=== PATIENT | female | born 1990 | race Caucasian/White ===

== ENCOUNTER 2017-10-25 10:24 | Emergency (ER) | payer OTHER ==
[2017-10-25 11:21] VITALS: BP 102/68
--- NOTE | 2017-10-25 11:52 | UC ---
Cardiac HPI - HPI Summary HPI Summary: Starting about 8 days ago, she had uri and cough begin. During this time she has had left posterior lateral rib pain. This pain is not worsened by coughing or breathing. There is no fever, hemoptysis, sob, air hunger, calf pain, calf swelling. She does not take OCP only depo shot and does not smoke. Not breast feeding. 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 No prior hx of heart disease, lung disease, blood clot. - History of Current Complaint Chief Complaint: UCBackPain Stated Complaint: UPPER BACK PAIN Time Seen by Provider: 10/25/17 11:37 Hx Obtained From: Patient Hx Last Menstrual Period: 10/2016 Onset/Duration: Gradual Onset, Lasting Days Timing: Constant Initial Severity: Moderate Current Severity: Moderate Pain Intensity: 7 Chest Pain Location: Discrete at:, Left Lateral Aggravating Factor(s): Other - lifting. Alleviating Factor(s): Position Associated Signs & Symptoms: Positive: Chest Pain. Negative: Recent Stress, Headaches, Numbness, Tingling, SOB, Swelling, Syncope, Fever, Nausea/Vomiting, Palpitations, Cough, Hemoptysis, Back Pain - Allergy/Home Medications Allergies/Adverse Reactions: Allergies Allergy/AdvReac Type Severity Reaction Status Date / Time Penicillins Allergy Hives Verified 10/25/17 11:21 Home Medications: Home Medications Omeprazole CAP* [Prilosec CAP* 20 MG] 40 mg PO DAILY 10/25/17 [History Confirmed 10/25/17] PMH/Surg Hx/FS Hx/Imm Hx Previously Healthy: No - anxiety. - Surgical History Surgical History: Yes Surgery Procedure, Year, and Place: R FOOT SX 02/03; x 2 - Family History Known Family History: Positive: Other - No early cardiac disease. - Social History Lives: With Family Alcohol Use: Rare Substance Use Type: None Smoking Status (MU): Former Smoker Type: Cigarettes Household Exposure Type: Cigarettes - Immunization History Most Recent Influenza Vaccination: no Review of Systems Respiratory: Cough Cardiovascular: Chest Pain All Other Systems Reviewed And Are Negative: Yes Physical Exam Triage Information Reviewed: Yes Appearance: Well-Appearing, No Pain Distress, Well-Nourished Vital Signs: Initial Vital Signs Temp 98.1 F 10/25/17 11:11 Pulse 62 10/25/17 11:11 Resp 18 05/02/18 11:11 BP 102/68 10/25/17 11:11 Pulse Ox 100 10/25/17 11:11 Vital Signs Reviewed: Yes Eyes: Positive: Conjunctiva Clear. Negative: Conjunctiva Inflamed ENT: Positive: Normal ENT inspection Neck: Positive: Supple, Nontender, No Lymphadenopathy Respiratory: Positive: Lungs clear, Normal breath sounds, No respiratory distress, No accessory muscle use. Negative: Respiratory distress, Decreased breath sounds, Accessory muscle use, Crackles, Rhonchi, Stridor, Wheezing Cardiovascular: Positive: No Murmur, Pulses Normal, Brisk Capillary Refill Abdomen Description: Positive: No Organomegaly, Soft. Negative: Distended, Guarding Musculoskeletal Exam: Other - Reproducible left posterior lateral rib tenderness around rib # 9-10. No calf tenderness, swelling and neg homans. Musculoskeletal: Positive: Other: Neurological: Positive: Alert, Muscle Tone Normal. Negative: Fatigued Psychological: Positive: Age Appropriate Behavior Skin: Negative: rashes Diagnostics - Radiology No standard instances Xray Interpretation: No Acute Changes Radiology Interpretation Completed By: ED Physician - Assessment/Plan Course Of Treatment: chest pain associated with recent URI and viral illness. Clinically quite well without sob or tachycardia. this is most c/w costochondritis. - Differential Diagnoses - Chest Pain Differential Diagnosis/HQI/PQRI: Acute MT, ACS, Angina, Aortic Aneurysm, CHF, Chest Wall, GI Disease, Lower Respiratory Infection, Pulmonary Edema, Pulmonary Embolism - Differential Diagnoses - Hypertension Differential Diagnosis/HQI PQRI: AAA, Angina, Eclampsia, Hypertension, Hypertensive Crisis, Hypertensive Urgency, Myocardial Infarction, Preeclampsia, Renal Disease - Clinical Impression Provider Diagnoses: costocondritis. Discharge - Sign-Out/Discharge Documenting (check all that apply): Discharge/Admit/Transfer - Discharge Plan Condition: Good Disposition: HOME Patient Education Materials: Costochondritis (ED) Referrals: Sia Kaplan MD [Primary Care Provider] - - Billing Disposition and Condition Condition: GOOD Disposition: HOME
--- NOTE | 2017-10-25 12:34 | RAD ---
INDICATION: Left-sided chest pain. COMPARISON: Comparison is made with a prior chest x-ray study from October 23, 2014. TECHNIQUE: Dual-energy PA and lateral views of the chest were obtained. FINDINGS: The heart is within normal limits in size. Mediastinal and hilar contours appear within normal limits. The lungs are clear. No pleural effusion or pneumothorax is seen. IMPRESSION: NO EVIDENCE FOR ACTIVE CARDIOPULMONARY DISEASE.
== END 2017-10-25 12:06 | disposition home or self-care (01) ==
LOC: UCCORT 10:24
DX: M94.0 Chondrocostal junction syndrome [Tietze] (principal); Z88.0 Allergy status to penicillin; Z87.891 Personal history of nicotine dependence
CPT/HCPCS: 71046; 99212; G0463

== ENCOUNTER 2018-04-13 20:01 | Emergency (ER) | payer MEDICAID, OTHER ==
[2018-04-13 20:33] VITALS: BP 135/78
[2018-04-13] MEDS ORDERED: Sulfamethox/Trimethoprim DS 800/160* TAB PO ONE (21:09)
--- NOTE | 2018-04-13 21:11 | ED ---
GI/ HPI - HPI Summary HPI Summary: 27 yr old with dysuria and hesitancy of urination for the past week. Denies fever. No back pain. She believes she has a UTI. - History of Current Complaint Chief Complaint: UCGU Time Seen by Provider: 04/13/18 20:51 Stated Complaint: URINARY COMPLAINT Hx Last Menstrual Period: MIRENA Pain Intensity: 0 - Allergy/Home Medications Allergies/Adverse Reactions: Allergies Allergy/AdvReac Type Severity Reaction Status Date / Time Penicillins Allergy Hives Verified 10/25/17 11:21 Home Medications: Home Medications Ibuprofen 800 mg PO ONCE 04/13/18 [History Confirmed 04/13/18] PMH/Surg Hx/FS Hx/Imm Hx - Surgical History Surgery Procedure, Year, and Place: R FOOT SX 02/03; x 2 Infectious Disease History: No Infectious Disease History: Denies: Traveled Outside the [place] in Last 30 Days - Family History Known Family History: Positive: Other - No early cardiac disease. - Social History Alcohol Use: Rare Substance Use Type: Reports: None Smoking Status (MU): Light Every Day Tobacco Smoker Type: Cigarettes Review of Systems Constitutional: Negative Positive: burning, other - hesitancy All Other Systems Reviewed And Are Negative: Yes Physical Exam Triage Information Reviewed: Yes Vital Signs On Initial Exam: Initial Vitals Temp Pulse Resp BP Pulse Ox 97.9 F 73 17 135/78 100 04/13/18 20:27 04/13/18 20:27 04/13/18 20:27 04/13/18 20:27 04/13/18 20:27 Vital Signs Reviewed: Yes Appearance: Positive: Well-Appearing, No Pain Distress Skin: Positive: Warm, Skin Color Reflects Adequate Perfusion Head/Face: Positive: Normal Head/Face Inspection Eyes: Positive: EOMI Neck: Positive: Nontender Respiratory/Lung Sounds: Positive: Clear to Auscultation, Breath Sounds Present Cardiovascular: Positive: RRR. Negative: Murmur Abdomen Description: Positive: Nontender. Negative: CVA Tenderness (R), CVA Tenderness (L) Musculoskeletal: Positive: Strength/ROM Intact Neurological: Positive: Sensory/Motor Intact, Alert, Oriented to Person Place, Time, CN Intact II-III Psychiatric: Positive: Normal - Joe Coma Scale Best Eye Response: 4 - Spontaneous Best Motor Response: 6 - Obeys Commands Best Verbal Response: 5 - Oriented Coma Scale Total: 15 Diagnostics - Vital Signs Vital Signs Temp Pulse Resp BP Pulse Ox 04/13/18 20:27 97.9 F 73 17 135/78 100 - Laboratory Lab Results: Lab Results 04/13/18 04/13/18 Range/Units 20:43 20:58 POC Urine Color Yellow POC Urine Clarity Cloudy POC Urine pH 7.0 (5-9) POC Ur Specif [place] 1.015 (1.010-1.030) POC Urine Protein Negative (Negative) POC Ur Glucose (UA) Negative (Negative) POC Urine Ketones Negative (Negative) POC Urine Blood Negative (Negative) POC Urine Nitrite Negative (Negative) POC Urine Bilirubin Negative (Negative) POC Urine Urobilinogen 0.2 (Negative) POC U Leukocyte Esteras 1+ A (Negative) POC Ur Test Negative (Negative) Lab Statement: Any lab studies that have been ordered have been reviewed, and results considered in the medical decision making process. GIGU Course/Dx - Course Course Of Treatment: 27 yr old with UTI. HCG neg. Rx bactrim DS. - Diagnoses Provider Diagnoses: UTI (urinary tract infection) Discharge - Sign-Out/Discharge Documenting (check all that apply): Patient Departure All imaging exams completed and their final reports reviewed: No Studies - Discharge Plan Condition: Good Disposition: HOME Prescriptions: Sulfamethox/Trimethoprim DS* [Bactrim DS 800/160 TAB*] 1 tab PO BID #10 tab Patient Education Materials: Urinary Tract Infection in Women (ED) Referrals: Sia Kaplan MD [Primary Care Provider] - 2 Days - Billing Disposition and Condition Condition: GOOD Disposition: Home
== END 2018-04-13 21:15 | disposition home or self-care (01) ==
LOC: UCCORT 20:01
DX: Z88.0 Allergy status to penicillin (principal); N39.0 Urinary tract infection, site not specified; B95.7 Other staphylococcus as the cause of diseases classified elsewhere
CPT/HCPCS: 81003; 84702; 87077; 87086; 99212; A9270-GY; G0463

== ENCOUNTER 2019-02-26 11:32 | Emergency (ER) | payer OTHER ==
[2019-02-26 12:32] VITALS: BP 119/81
--- NOTE | 2019-02-26 13:13 | UC ---
Shoulder Pain HPI - HPI Summary HPI Summary: left shoulder pain x 1 day pain is 5 out of 10 , worse with movement , lifting , better with rest and ice no known injury , history of left shoulder dislocation many years ago - History of Current Complaint Chief Complaint: UCUpperExtremity Stated Complaint: LEFT SHOULDER CONCERN Time Seen by Provider: 02/26/19 12:57 Hx Obtained From: Patient Hx Last Menstrual Period: June 2018 - IUD placed Onset/Duration: Gradual Onset, Lasting Days - 1, Still Present Timing: Constant Severity Initially: Moderate Severity Currently: Moderate Location Of Pain: Is Diffuse - left shoulder Pain Intensity: 5 Character: Aching, Throbbing Aggravating Factor(s): Movement, Lifting Alleviating Factor(s): Rest, Ice Associated Signs And Symptoms: Negative: Swelling, Redness, Bruising, Fever, Weakness, Numbness/Tingling - Allergies/Home Medications Allergies/Adverse Reactions: Allergies Allergy/AdvReac Type Severity Reaction Status Date / Time Penicillins Allergy Hives Verified 02/26/19 12:32 Home Medications: Home Medications Ibuprofen TAB* [Advil TAB*] 800 mg PO ONCE 02/26/19 [History Confirmed 02/26/19] PMH/Surg Hx/FS Hx/Imm Hx Previously Healthy: Yes - Surgical History Surgical History: Yes Surgery Procedure, Year, and Place: R FOOT SX 02/03; x 2 - Family History Known Family History: Positive: Other - No early cardiac disease., Non- Contributory - Social History Alcohol Use: Occasionally Substance Use Type: None Smoking Status (MU): Light Every Day Tobacco Smoker Type: Cigarettes Amount Used/How Often: 5-6 cigs daily Household Exposure Type: Cigarettes - Immunization History Most Recent Influenza Vaccination: no Review of Systems All Other Systems Reviewed And Are Negative: Yes Constitutional: Positive: Negative Skin: Positive: Negative Eyes: Positive: Negative ENT: Positive: Negative Is Patient Immunocompromised?: No Physical Exam Triage Information Reviewed: Yes Appearance: Well-Appearing, No Pain Distress, Well-Nourished Vital Signs: Initial Vital Signs Temp 98.1 F 02/26/19 12:26 Pulse 93 02/26/19 12:26 Resp 18 02/26/19 12:26 BP 119/81 02/26/19 12:26 Pulse Ox 97 02/26/19 12:26 Eyes: Positive: Conjunctiva Clear ENT: Positive: Normal ENT inspection, Hearing grossly normal, Pharynx normal Neck: Positive: Supple, Nontender, No Lymphadenopathy Respiratory: Positive: Chest non-tender, Lungs clear, Normal breath sounds Cardiovascular: Positive: RRR, No Murmur, Pulses Normal Abdominal Exam: Normal Musculoskeletal: Positive: Other: - left shoulder : no swelling, + tenderness lateral shoulder , pain with flexion and extension normal strength Diagnostics - Radiology No standard instances Radiology Interpretation Completed By: Radiologist Summary of Radiographic Findings: FINDINGS: The soft tissues are unremarkable. The bone mineralization is within normal limits. No fracture is identified. Anatomic alignment is maintained. The joint spaces are preserved. IMPRESSION: NO EVIDENCE OF FRACTURE. Shoulder Course/Dx - Differential Dx/Diagnosis Provider Diagnosis: Left shoulder tendonitis Discharge ED - Sign-Out/Discharge Documenting (check all that apply): Patient Departure All imaging exams completed and their final reports reviewed: Yes - Discharge Plan Condition: Stable Disposition: HOME Prescriptions: Naproxen [Naproxen 500 mg tab] 500 mg PO BID #20 tablet Patient Education Materials: Shoulder Sprain (ED) Referrals: Nadiya Edouard NP [Primary Care Provider] - 7 Days - Billing Disposition and Condition Condition: STABLE Disposition: Home
== END 2019-02-26 13:30 | disposition home or self-care (01) ==
LOC: UCCORT 11:32
DX: M75.92 Shoulder lesion, unspecified, left shoulder (principal); F17.210 Nicotine dependence, cigarettes, uncomplicated
CPT/HCPCS: 99212; G0463

== ENCOUNTER 2019-03-25 18:56 | Emergency (ER) | payer OTHER ==
[2019-03-25 19:49] VITALS: BP 141/81
[2019-03-25 20:52] LABS: Influenza A Molecular NEGATIVE (Negative); Influenza B Molecular NEGATIVE (Negative)
--- NOTE | 2019-03-25 21:21 | UC ---
FLU HPI - HPI Summary HPI Summary: 28-year-old female presents with 2 day history of subjective fever, chills, general malaise, body aches, nasal congestion, runny nose, sore throat, and a dry nonproductive cough. Has been taking [id number] cold and flu medication with minimal relief in symptoms. Denies ear pain, dysphagia, chest pain, shortness of breath, abdominal pain, nausea, vomiting, or diarrhea. - History of Current Complaint Chief Complaint: UCGeneralIllness Stated Complaint: CHILLS, FEVER, BODY ACHES Time Seen by Provider: 03/25/19 20:55 Hx Obtained From: Patient Hx Last Menstrual Period: IUD Pain Intensity: 6 - Allergy/Home Medications Allergies/Adverse Reactions: Allergies Allergy/AdvReac Type Severity Reaction Status Date / Time Penicillins Allergy Hives Verified 03/25/19 19:37 Home Medications: Home Medications Cpm/PE/Dm/Acetaminophen/Guaifn [Tylenol Cold-Flu Day-Nt Caplet] 1 each PO BID PRN 03/25/19 [History Confirmed 03/25/19] Naproxen [Naproxen 500 mg tab] 500 mg PO BID PRN 03/25/19 [History Confirmed ] PMH/Surg Hx/FS Hx/Imm Hx GI/ History: Gastroesophageal Reflux Psychological History: Depression - Surgical History Surgical History: Yes Surgery Procedure, Year, and Place: R FOOT SX 02/03; x 2 - Family History Known Family History: Positive: Non-Contributory - Social History Occupation: Employed Full-time Lives: Alone Alcohol Use: Occasionally Substance Use Type: None Smoking Status (MU): Light Every Day Tobacco Smoker Type: Cigarettes Amount Used/How Often: 5-6 cigs daily Length of Time of Smoking/Using Tobacco: 4 yrs Household Exposure Type: Cigarettes - Immunization History Most Recent Influenza Vaccination: no Review of Systems All Other Systems Reviewed And Are Negative: Yes Constitutional: Positive: Fever - Subjective, Chills Skin: Negative: Rash Eyes: Negative: Drainage, Eye Redness ENT: Positive: Sore Throat, Nasal Discharge, Sinus Congestion. Negative: Ear Ache, Sinus Pain/Tenderness Respiratory: Positive: Cough. Negative: Shortness Of Breath Cardiovascular: Negative: Chest Pain Gastrointestinal: Negative: Abdominal Pain, Vomiting, Diarrhea, Nausea Genitourinary: Positive: Negative Musculoskeletal: Positive: Myalgia Neurological: Positive: Negative Is Patient Immunocompromised?: No Physical Exam - Summary Physical Exam Summary: GENERAL APPEARANCE: Well developed, well nourished, alert and cooperative, and appears to be in no acute distress. EYES: Conjunctiva clear. No drainage. EARS: External auditory canals and tympanic membranes clear, hearing grossly intact. NOSE: Moderate nasal congestion. Clear nasal discharge. THROAT: Mild pharyngeal erythema. No tonsilar inflammation, swelling, exudate, or lesions. Uvula midline. NECK: Neck supple, non-tender without lymphadenopathy. CARDIAC: Normal S1 and S2. No S3, S4 or murmurs. Rhythm is regular. There is no peripheral edema, cyanosis or pallor. Extremities are warm and well perfused. Capillary refill is less than 2 seconds. Peripheral pulses intact. LUNGS: Clear to auscultation without rales, rhonchi, wheezing or diminished breath sounds. Cough not observed. ABDOMEN: Positive bowel sounds. Soft, nondistended, nontender. No guarding or rebound. No masses or hepatosplenomegally. MUSKULOSKELETAL: ROM intact to all extremities. No joint erythema or tenderness. Normal muscular development. Normal gait. SKIN: Skin normal color, texture and turgor with no lesions or eruptions. Triage Information Reviewed: Yes Vital Signs: Initial Vital Signs Temp 99 F 03/25/19 19:40 Pulse 86 03/25/19 19:40 Resp 18 03/25/19 19:40 BP 141/81 03/25/19 19:40 Pulse Ox 100 03/25/19 19:40 Vital Signs Reviewed: Yes Flu Course/Dx - Course Course Of Treatment: 28-year-old female presents with 2 day history of subjective fever, chills, general malaise, body aches, nasal congestion, runny nose, sore throat, and a dry nonproductive cough. Has been taking [id number] cold and flu medication with minimal relief in symptoms. Denies ear pain, dysphagia, chest pain, shortness of breath, abdominal pain, nausea, vomiting, or diarrhea. Afebrile. Hypertensive otherwise vital signs stable. Patient and mother nasal congestion, clear nasal discharge, mild pharyngeal erythema without tonsillar swelling or exudate, is no cervical lymphadenopathy, clear bilateral breath sounds, and otherwise unremarkable exam. Rapid strep test was negative. Rapid flu negative. Discussed results with the patient. Recommending symptomatic treatment for a viral upper respiratory infection. She is to follow-up with a primary care provider in 3-5 days if symptoms are not improving. Anticipatory guidance and warning symptoms were reviewed with the patient. Verbalized understanding and agrees with plan of care. - Differential Dx/Diagnosis Differential Diagnosis/HQI/PQRI: Bronchitis, Influenza, Pneumonia, Upper Respiratory Infection Provider Diagnosis: Viral URI with cough Discharge ED - Sign-Out/Discharge Documenting (check all that apply): Patient Departure All imaging exams completed and their final reports reviewed: No Studies - Discharge Plan Condition: Stable Disposition: HOME Patient Education Materials: Upper Respiratory Infection (ED) Forms: *Work Release Referrals: Nadiya Edouard NP [Primary Care Provider] - 3 Days Additional Instructions: The rapid flu test and rapid strep test performed in the clinic today were both negative. Your history and exam are consistent with a viral upper respiratory infection. Viral infections do not respond to antibiotics and are limited to the treatment of symptoms. Viral infections typically run their course in 7-10 days. Drink plenty of fluids to avoid dehydration especially if you are running any fever. Use a saline rinse kit such as Neti Pot or NeilMed at least twice a day to help thin secretions and promote drainage of the sinuses. Use an over the counter decongestant such as Sudafed according to directions for the nasal congestion.. Take over the counter acetaminophen (Tylenol) or ibuprofen (Advil, Motrin) according to directions as needed for pain or fever. Use salt water gargles several times a day if you have a sore throat. You may also use Chloraseptic spray or Cepacol lonzenges according to directions which contain a numbing medication and can provide some temporary relief from your sore throat. Follow up with your primary care provider in 3-5 days if symptoms persist. Seek immediate medical attention in the emergency room if you have fever greater than 100.5 F despite taking acetaminophen or ibuprofen, have chest pain , difficulty breathing, are unable to swallow, or have any worsening of symptoms. - Billing Disposition and Condition Condition: STABLE Disposition: Home
== END 2019-03-25 21:33 | disposition home or self-care (01) ==
LOC: UCCORT 18:56
DX: J06.9 Acute upper respiratory infection, unspecified (principal); F17.210 Nicotine dependence, cigarettes, uncomplicated; Z88.0 Allergy status to penicillin
CPT/HCPCS: 87651; 99211; G0463

== ENCOUNTER 2019-06-26 17:33 | Emergency (ER) | payer OTHER ==
[2019-06-26 18:09] VITALS: BP 131/96
--- NOTE | 2019-06-26 18:28 | UC ---
Throat Pain/Nasal Mushtaq HPI - HPI Summary HPI Summary: 29-year-old female presents with 3 day history of sore throat. Associated with occasional dry nonproductive cough. Denies fever, chills, ear pain, dysphagia, nasal congestion, chest pain, shortness of breath, abdominal pain, nausea, or vomiting. - History of Current Complaint Chief Complaint: UCGeneralIllness Stated Complaint: SORE THROAT Time Seen by Provider: 06/26/19 18:08 Hx Obtained From: Patient Hx Last Menstrual Period: Mirena Pain Intensity: 0 - Allergies/Home Medications Allergies/Adverse Reactions: Allergies Allergy/AdvReac Type Severity Reaction Status Date / Time Penicillins Allergy Hives Verified 06/26/19 18:01 Home Medications: Home Medications Acetaminophen [Tylenol Extra Strength] 500 mg PO ONCE PRN 06/26/19 [History Confirmed 06/26/19] PMH/Surg Hx/FS Hx/Imm Hx GI/ History: Gastroesophageal Reflux Psychological History: Depression - Surgical History Surgical History: Yes Surgery Procedure, Year, and Place: R FOOT SX 02/03; x 2 - Family History Known Family History: Positive: Non-Contributory - Social History Occupation: Employed Full-time Lives: Alone Alcohol Use: Rare Substance Use Type: None Smoking Status (MU): Light Every Day Tobacco Smoker Type: Cigarettes Amount Used/How Often: 7-8 cigs daily Length of Time of Smoking/Using Tobacco: 5 yrs Household Exposure Type: Cigarettes - Immunization History Most Recent Influenza Vaccination: no Review of Systems All Other Systems Reviewed And Are Negative: Yes Constitutional: Negative: Fever, Chills Skin: Negative: Rash Eyes: Negative: Drainage, Eye Redness ENT: Positive: Sore Throat. Negative: Ear Ache, Nasal Discharge, Sinus Congestion, Sinus Pain/Tenderness Respiratory: Positive: Cough. Negative: Shortness Of Breath Cardiovascular: Negative: Chest Pain Gastrointestinal: Negative: Abdominal Pain, Vomiting, Nausea Genitourinary: Positive: Negative Musculoskeletal: Positive: Negative Neurological: Positive: Negative Is Patient Immunocompromised?: No Physical Exam - Summary Physical Exam Summary: GENERAL APPEARANCE: Well developed, well nourished, alert and cooperative, and appears to be in no acute distress. EYES: Conjunctiva clear. No drainage. EARS: External auditory canals and tympanic membranes clear, hearing grossly intact. NOSE: No nasal discharge. THROAT: Pharyngeal erythema. No tonsilar inflammation, swelling, exudate, or lesions. Uvula midline. NECK: Neck supple, non-tender without lymphadenopathy. CARDIAC: Normal S1 and S2. No S3, S4 or murmurs. Rhythm is regular. There is no peripheral edema, cyanosis or pallor. Extremities are warm and well perfused. Capillary refill is less than 2 seconds. Peripheral pulses intact. LUNGS: Clear to auscultation without rales, rhonchi, wheezing or diminished breath sounds. ABDOMEN: Positive bowel sounds. Soft, nondistended, nontender. No guarding or rebound. No masses or hepatosplenomegally. MUSKULOSKELETAL: ROM intact to all extremities. No joint erythema or tenderness. Normal muscular development. Normal gait. SKIN: Skin normal color, texture and turgor with no lesions or eruptions. Triage Information Reviewed: Yes Vital Signs: Initial Vital Signs Temp 98 F 06/26/19 18:04 Pulse 78 06/26/19 18:04 Resp 20 06/26/19 18:04 BP 131/96 06/26/19 18:04 Pulse Ox 98 06/26/19 18:04 Vital Signs Reviewed: Yes Throat Pain/Nasal Course/Dx - Course Course Of Treatment: 29-year-old female presents with 3 day history of sore throat. Associated with occasional dry nonproductive cough. Denies fever, chills, ear pain, dysphagia, nasal congestion, chest pain, shortness of breath, abdominal pain, nausea, or vomiting. Afebrile. Vital signs stable. Patient had pharyngeal erythema without tonsillar swelling or exudate, no cervical lymphadenopathy, clear bilateral breath sounds, and otherwise unremarkable exam. Rapid strep test was negative. Reviewed the results with the patient. Recommending symptomatic treatment for viral pharyngitis. She is to follow-up with her primary care provider in 5-7 days if symptoms are not improving. Anticipatory guidance and warning symptoms were reviewed with the patient. Verbalizes understanding and agrees with plan of care. - Differential Dx/Diagnosis Differential Diagnosis/HQI/PQRI: Mononucleosis, Peritonsillar Abscess, Pharyngitis, Tonsillitis, URI Provider Diagnosis: Viral pharyngitis Discharge ED - Sign-Out/Discharge Documenting (check all that apply): Patient Departure All imaging exams completed and their final reports reviewed: No Studies - Discharge Plan Condition: Stable Disposition: HOME Patient Education Materials: Pharyngitis (ED) Referrals: No Primary Care Phys,NOPCP [Primary Care Provider] - Additional Instructions: Your rapid strep test in the clinic today was negative. Your symptoms are likely from a viral infection. Viral infections do not respond to antibiotics and are limited to the treatment of symptoms. Viral infections typically run their course in 7-10 days. Drink plenty of fluids to avoid dehydration especially if you are running any fever. Use salt water gargles several times a day. Take over the counter acetaminophen (Tylenol) or ibuprofen (Advil, Motrin) according to directions as needed for pain or fever. You may also use Chloraseptic spray or Cepacol lonzenges according to directions which contain a numbing medication and can provide some temporary relief from your sore throat. Return here or follow up with your primary care provider in 7 days if symptoms persist. Seek immediate medical attention in the emergency room if you have fever greater than 100.5 F despite taking acetaminophen or ibuprofen, are unable to swallow or develop drooling, are unable to open your mouth fully, are unable to eat or drink, have pain that is not relieved with over the counter pain medication, or have any difficulty breathing. - Billing Disposition and Condition Condition: STABLE Disposition: Home - Attestation Statements Provider Attestation: Per institutional requirements, I have reviewed the chart, however, I was not consulted specifically or made aware of this patient by the midlevel provider. I did not personally evaluate, interact with , or disposition this patient.
== END 2019-06-26 18:39 | disposition home or self-care (01) ==
LOC: UCCORT 17:33
DX: J02.9 Acute pharyngitis, unspecified (principal); F17.210 Nicotine dependence, cigarettes, uncomplicated; Z88.0 Allergy status to penicillin
CPT/HCPCS: 87651; 99211; G0463